=== PATIENT | female | born 2005 | race Native Hawaiian/Other Pacific Islander ===

== ENCOUNTER 2025-03-17 14:53 | Inpatient (IN) | payer OTHER ==
[2025-03-17 19:11] VITALS: BP 112/69; PULSE 18; RESP 18; TEMP 98.1; O2SAT 100
[2025-03-17 20:30] VITALS: PULSE 109; O2SAT 100
[2025-03-18] VITALS (7 sets, daily range): BP systolic 103–115; BP diastolic 62–73; PULSE 84–108; RESP 17–19; TEMP 97.7–98.4; O2SAT 98–100
[2025-03-18] MEDS ORDERED: ONDANSETRON HCL 4 MG/2 ML VIAL IVP PRN (02:15)
[2025-03-18] MEDS ORDERED: MORPHINE SULFATE 2 MG/ML SYRINGE IVP PRN (02:15)
[2025-03-18] MEDS ORDERED: ZOLPIDEM TARTRATE 5 MG TABLET PO PRN (02:15)
[2025-03-18 07:59] LABS: CALCIUM, TOTAL 9.5 mg/dL (8.8-10.5); CREATININE 0.45 mg/dL (0.60-1.30); GLOMERULAR FILTR. RATE CALC > 60 mL/min (>60); GLUCOSE,RANDOM 90 mg/dL (70-110); SODIUM SERUM 136 mmol/L (136-145); UREA NITROGEN, BLOOD 11 mg/dL (7-18)
[2025-03-18 08:03] LABS: RED BLOOD CELL COUNT(AUTO) 4.53 MIL/uL (4.00-5.20); RED CELL DISTRIBUTION WIDTH 25.2 % (11.5-14.5); WHITE BLOOD COUNT (AUTO) 7.0 K/uL (4.5-11.0)
[2025-03-18 08:06] LABS: PLATELET COUNT (AUTO) 900 K/uL (150-450)
[2025-03-18] MEDS ORDERED: MORPHINE SULFATE 4 MG/ML SYRINGE IVP PRN (10:02)
[2025-03-18] MEDS: PANTOPRAZOLE SODIUM 40 MG DR TABLET PO SCH (10:33)
[2025-03-18] MEDS: DOCUSATE SODIUM 100 MG CAPSULE PO SCH (10:33)
[2025-03-18] MEDS: HEPARIN SODIUM,PORCINE 5,000 UNITS/ML VIAL SQ SCH (10:33)
[2025-03-18 12:59] LABS: RBC MORPHOLOGY COMMENT ABNORMAL RBC MORPH
[2025-03-18 13:03] LABS: PLATELET MORPHOLOGY COMMENT LARGE PLTS PRESENT
[2025-03-18] MEDS: HYDROCODONE/ACETAMINOPHEN 5-325 MG TABLET PO PRN (13:24)
[2025-03-18 19:29] LABS: APPEARANCE,URINE CLEAR (CLEAR); GLUCOSE, URINE (UA) NEGATIVE (NEGATIVE); LEUKOCYTE ESTERASE ,URINE NEGATIVE (NEGATIVE); NITRATE,URINE NEGATIVE (NEGATIVE); OCCULT BLOOD,URINE NEGATIVE (NEGATIVE); SPECIFIC GRAVITIY, URINE 1.011 (1.003-1.030)
[2025-03-18] MEDS: OMEGA-3/DHA/EPA/FISH OIL 1,000 MG CAPSULE PO SCH (21:56)
[2025-03-19 05:04] VITALS: BP 115/70; PULSE 105; RESP 18; TEMP 98.1; O2SAT 98
[2025-03-19 08:39] VITALS: BP 105/67; PULSE 94; RESP 17; TEMP 98.2; O2SAT 99
[2025-03-19 14:25] VITALS: BP 98/71; PULSE 132; RESP 18; TEMP 98.1; O2SAT 98
[2025-03-19] MEDS: OxyCODONE HCL 5 MG IR TABLET PO PRN (14:32)
[2025-03-19 16:00] VITALS: BP 110/71; PULSE 110; RESP 18; TEMP 98.1; O2SAT 99
[2025-03-19 19:30] VITALS: BP 112/69; PULSE 114; RESP 18; TEMP 98.6; O2SAT 95
[2025-03-20 05:30] VITALS: BP 111/68; PULSE 92; RESP 18; TEMP 98.2; O2SAT 98
[2025-03-20 07:44] VITALS: BP 120/68; PULSE 85; RESP 18; TEMP 98.4; O2SAT 100
[2025-03-20 16:08] VITALS: BP 112/74; PULSE 105; RESP 18; TEMP 98.8; O2SAT 99
[2025-03-20 20:00] VITALS: BP 111/66; PULSE 93; RESP 18; TEMP 98.6; O2SAT 99
[2025-03-21 05:29] VITALS: BP 111/73; PULSE 94; RESP 18; TEMP 98.2; O2SAT 99
[2025-03-21 08:01] LABS: RED BLOOD CELL COUNT(AUTO) 4.33 MIL/uL (4.00-5.20); RED CELL DISTRIBUTION WIDTH 24.9 % (11.5-14.5); WHITE BLOOD COUNT (AUTO) 7.8 K/uL (4.5-11.0)
[2025-03-21 08:04] LABS: PLATELET COUNT (AUTO) 827 K/uL (150-450)
[2025-03-21 08:19] LABS: CALCIUM, TOTAL 9.8 mg/dL (8.8-10.5); CREATININE 0.41 mg/dL (0.60-1.30); GLOMERULAR FILTR. RATE CALC > 60 mL/min (>60); GLUCOSE,RANDOM 97 mg/dL (70-110); SODIUM SERUM 137 mmol/L (136-145); UREA NITROGEN, BLOOD 8 mg/dL (7-18)
[2025-03-21 08:50] VITALS: BP 109/67; PULSE 94; RESP 18; TEMP 98.4; O2SAT 98
[2025-03-21 15:00] VITALS: BP 110/68; PULSE 109; RESP 18; TEMP 98.2; O2SAT 99
[2025-03-21 19:53] VITALS: BP 108/70; PULSE 104; RESP 18; TEMP 98.1; O2SAT 98
[2025-03-22 05:11] VITALS: BP 103/71; PULSE 89; RESP 18; TEMP 97.9; O2SAT 97
[2025-03-22 07:24] LABS: CALCIUM, TOTAL 9.9 mg/dL (8.8-10.5); CREATININE 0.41 mg/dL (0.60-1.30); GLOMERULAR FILTR. RATE CALC > 60 mL/min (>60); GLUCOSE,RANDOM 94 mg/dL (70-110); RED BLOOD CELL COUNT(AUTO) 4.61 MIL/uL (4.00-5.20); RED CELL DISTRIBUTION WIDTH 24.7 % (11.5-14.5); SODIUM SERUM 137 mmol/L (136-145); UREA NITROGEN, BLOOD 11 mg/dL (7-18); WHITE BLOOD COUNT (AUTO) 7.2 K/uL (4.5-11.0)
[2025-03-22 07:32] LABS: PLATELET COUNT (AUTO) 770 K/uL (150-450); RBC MORPHOLOGY COMMENT ABNORMAL RBC MORPH
[2025-03-22 08:12] VITALS: BP 108/74; PULSE 92; RESP 18; TEMP 97.9; O2SAT 98
[2025-03-22 16:30] VITALS: BP 109/72; PULSE 101; RESP 18; TEMP 97.9; O2SAT 98
[2025-03-22 19:21] VITALS: BP 111/71; PULSE 97; RESP 18; TEMP 97.5; O2SAT 97
[2025-03-23 04:34] VITALS: BP 109/63; PULSE 92; RESP 18; TEMP 97.9; O2SAT 97
[2025-03-23 08:14] VITALS: BP 107/65; PULSE 93; RESP 18; TEMP 97.9; O2SAT 98
[2025-03-23 09:06] LABS: PLATELET COUNT (AUTO) 712 K/uL (150-450); RED BLOOD CELL COUNT(AUTO) 4.49 MIL/uL (4.00-5.20); RED CELL DISTRIBUTION WIDTH 23.8 % (11.5-14.5); WHITE BLOOD COUNT (AUTO) 8.0 K/uL (4.5-11.0)
[2025-03-23 09:17] LABS: CALCIUM, TOTAL 9.8 mg/dL (8.8-10.5); CREATININE 0.42 mg/dL (0.60-1.30); GLOMERULAR FILTR. RATE CALC > 60 mL/min (>60); GLUCOSE,RANDOM 131 mg/dL (70-110); SODIUM SERUM 135 mmol/L (136-145); UREA NITROGEN, BLOOD 11 mg/dL (7-18)
[2025-03-23 09:49] LABS: RBC MORPHOLOGY COMMENT ABNORMAL RBC MORPH
[2025-03-23 16:26] VITALS: BP 108/73; PULSE 101; RESP 18; TEMP 98; O2SAT 97
[2025-03-23 20:14] VITALS: BP 112/73; PULSE 105; RESP 18; TEMP 98; O2SAT 99
[2025-03-24 05:00] VITALS: BP 104/65; PULSE 103; RESP 18; TEMP 98.1; O2SAT 100
[2025-03-24 08:41] VITALS: BP 103/70; PULSE 93; RESP 17; TEMP 98.6; O2SAT 100
[2025-03-24 16:02] VITALS: BP 118/76; PULSE 135; RESP 16; TEMP 97.7; O2SAT 98
[2025-03-24 18:24] VITALS: PULSE 110
[2025-03-24 19:51] VITALS: BP 111/74; PULSE 104; RESP 18; TEMP 98.5; O2SAT 100
[2025-03-25 04:59] VITALS: BP 108/71; PULSE 88; RESP 18; TEMP 97.5; O2SAT 99
[2025-03-25 09:02] VITALS: BP 112/78; PULSE 93; RESP 18; TEMP 97.3; O2SAT 99
[2025-03-25 10:03] LABS: PLATELET COUNT (AUTO) 580 K/uL (150-450); RED BLOOD CELL COUNT(AUTO) 4.66 MIL/uL (4.00-5.20); RED CELL DISTRIBUTION WIDTH 24.0 % (11.5-14.5); WHITE BLOOD COUNT (AUTO) 6.7 K/uL (4.5-11.0)
[2025-03-25 10:10] LABS: CALCIUM, TOTAL 9.5 mg/dL (8.8-10.5); CREATININE 0.44 mg/dL (0.60-1.30); GLOMERULAR FILTR. RATE CALC > 60 mL/min (>60); GLUCOSE,RANDOM 91 mg/dL (70-110); SODIUM SERUM 134 mmol/L (136-145); UREA NITROGEN, BLOOD 11 mg/dL (7-18)
[2025-03-25 10:15] LABS: ASPARTATE AMINOTRANSFERASE 19 U/L (15-37); TOTAL PROTEIN, SERUM 7.9 g/dL (6.4-8.2)
[2025-03-25 10:41] LABS: RBC MORPHOLOGY COMMENT ABNORMAL RBC MORPH
[2025-03-25 16:43] VITALS: BP 109/64; PULSE 114; RESP 18; TEMP 98.6; O2SAT 99
[2025-03-25 20:00] VITALS: BP 125/71; PULSE 97; RESP 18; TEMP 97.5; O2SAT 98
[2025-03-26] MEDS ORDERED: IOHEXOL 350 MG/ML 100 ML VIAL ONE (00:16)
[2025-03-26] MEDS ORDERED: SODIUM CHLORIDE 0.9% 100 ML ONE (00:16)
[2025-03-26 04:00] VITALS: BP 107/67; PULSE 89; RESP 18; TEMP 97.7; O2SAT 98
[2025-03-26 08:22] VITALS: BP 101/68; PULSE 91; RESP 18; TEMP 97.6; O2SAT 100
[2025-03-26] MEDS: ONDANSETRON 4 MG TABLET PO PRN (12:11)
[2025-03-26] MEDS ORDERED: ONDANSETRON HCL 4 MG/2 ML VIAL PO PRN (14:15)
[2025-03-26 17:11] VITALS: BP 107/71; PULSE 99; RESP 18; TEMP 97.9; O2SAT 100
[2025-03-26 19:15] VITALS: BP 109/68; PULSE 113; RESP 18; TEMP 97.3; O2SAT 98
[2025-03-27 04:25] VITALS: BP 107/66; PULSE 89; RESP 18; TEMP 98.1; O2SAT 98
[2025-03-27 08:00] VITALS: BP 104/70; PULSE 95; RESP 19; TEMP 98.6; O2SAT 98
[2025-03-27 16:00] VITALS: BP 108/78; PULSE 86; RESP 20; TEMP 98.1; O2SAT 98
[2025-03-27 19:41] VITALS: BP 101/64; PULSE 116; RESP 18; TEMP 98.2; O2SAT 99
[2025-03-27 21:48] LABS: PLATELET COUNT (AUTO) 438 K/uL (150-450); RED BLOOD CELL COUNT(AUTO) 4.50 MIL/uL (4.00-5.20); RED CELL DISTRIBUTION WIDTH 23.6 % (11.5-14.5); WHITE BLOOD COUNT (AUTO) 8.8 K/uL (4.5-11.0)
[2025-03-27 21:49] LABS: CALCIUM, TOTAL 9.4 mg/dL (8.8-10.5); CREATININE 0.50 mg/dL (0.60-1.30); GLOMERULAR FILTR. RATE CALC > 60 mL/min (>60); GLUCOSE,RANDOM 107 mg/dL (70-110); SODIUM SERUM 137 mmol/L (136-145); UREA NITROGEN, BLOOD 19 mg/dL (7-18)
[2025-03-27 22:00] LABS: PLATELET MORPHOLOGY COMMENT LARGE PLTS PRESENT; RBC MORPHOLOGY COMMENT ABNORMAL RBC MORPH
[2025-03-28 05:19] VITALS: BP 103/71; PULSE 99; RESP 17; TEMP 98.2; O2SAT 98
[2025-03-28 08:11] VITALS: BP 109/65; PULSE 90; RESP 18; TEMP 98.1; O2SAT 98
[2025-03-28 16:00] VITALS: BP 111/73; PULSE 109; RESP 20; TEMP 98.2; O2SAT 99
[2025-03-28 20:15] VITALS: BP 107/72; PULSE 106; RESP 20; TEMP 98.1; O2SAT 98
[2025-03-29 05:19] VITALS: BP 105/62; PULSE 96; RESP 18; TEMP 98.1; O2SAT 98
[2025-03-29 08:05] VITALS: BP 112/82; PULSE 103; RESP 20; TEMP 98.2; O2SAT 99
[2025-03-29 09:39] VITALS: BP 110/80; PULSE 104; RESP 17; TEMP 98; O2SAT 98
[2025-03-29 16:21] VITALS: BP 105/71; PULSE 116; RESP 20; TEMP 97.7; O2SAT 99
[2025-03-29 20:33] VITALS: BP 113/70; PULSE 108; RESP 18; TEMP 98.2; O2SAT 99
[2025-03-29 20:49] VITALS: BP 113/70; PULSE 106; RESP 18; TEMP 98.2; O2SAT 99
[2025-03-30 06:09] VITALS: BP 109/68; PULSE 98; RESP 18; TEMP 97.7; O2SAT 96
[2025-03-30 08:15] VITALS: BP 108/65; PULSE 97; RESP 18; TEMP 98.2; O2SAT 98
[2025-03-30 10:11] LABS: CALCIUM, TOTAL 9.6 mg/dL (8.8-10.5); CREATININE 0.42 mg/dL (0.60-1.30); GLOMERULAR FILTR. RATE CALC > 60 mL/min (>60); GLUCOSE,RANDOM 95 mg/dL (70-110); SODIUM SERUM 135 mmol/L (136-145); UREA NITROGEN, BLOOD 13 mg/dL (7-18)
[2025-03-30 10:20] LABS: TROPONIN I-HIGH SENSITIVITY 7 ng/L (<51)
[2025-03-30 12:36] VITALS: BP 113/71; PULSE 127; RESP 17; O2SAT 100
[2025-03-30 14:20] VITALS: BP_SYST 107; BP_SYST 98; BP_DIAS 77; BP_DIAS 81; PULSE 94
[2025-03-30 20:02] VITALS: BP 105/67; PULSE 110; RESP 18; TEMP 98.7; O2SAT 100
[2025-03-31 04:48] VITALS: BP 108/74; PULSE 92; RESP 18; TEMP 98; O2SAT 99
[2025-03-31 08:36] VITALS: BP 108/71; PULSE 93; RESP 18; TEMP 97.7; O2SAT 99
[2025-03-31 12:00] VITALS: BP_SYST 105; BP_SYST 98; BP_DIAS 66; BP_DIAS 70; PULSE 113
[2025-03-31 20:32] VITALS: BP 103/69; PULSE 116; RESP 18; TEMP 98.2; O2SAT 100
[2025-03-31] MEDS: MAGNESIUM HYDROXIDE SUSPENSION 30 ML UDCUP PO PRN (21:08)
[2025-04-01 03:37] VITALS: BP 106/64; PULSE 102; RESP 18; TEMP 98.1; O2SAT 99
[2025-04-01 08:54] VITALS: BP 111/77; PULSE 93; RESP 16; TEMP 98.2; O2SAT 99
[2025-04-01 12:00] VITALS: RESP 18
[2025-04-01] MEDS: BISACODYL 10 MG RECTAL RECTAL SUPPOSITORY PR PRN (14:42)
[2025-04-01 16:28] VITALS: BP 110/62; PULSE 112; RESP 18; TEMP 97.5; O2SAT 100
[2025-04-01 20:18] VITALS: BP 114/75; PULSE 93; RESP 18; TEMP 97.9; O2SAT 99
[2025-04-02 06:34] VITALS: BP 112/68; PULSE 106; RESP 20; TEMP 98.6; O2SAT 98
[2025-04-02 08:28] VITALS: BP 109/78; PULSE 86; RESP 20; TEMP 98.6; O2SAT 98
[2025-04-02 15:29] VITALS: BP 102/71; PULSE 100; RESP 20; TEMP 98.2; O2SAT 99
[2025-04-02 15:39] VITALS: BP_SYST 108; BP_SYST 113; BP_DIAS 66; BP_DIAS 73; PULSE 92
[2025-04-02 20:22] VITALS: BP 105/73; PULSE 109; RESP 20; TEMP 98.9; O2SAT 100
[2025-04-03 05:33] VITALS: BP 108/67; PULSE 95; RESP 20; TEMP 98.4; O2SAT 100
[2025-04-03 08:00] VITALS: BP_SYST 103; BP_SYST 110; BP_DIAS 65; BP_DIAS 77; PULSE 98
[2025-04-03 08:38] VITALS: BP 112/73; PULSE 98; RESP 18; TEMP 97.7; O2SAT 99
[2025-04-03 16:10] VITALS: BP 110/70; PULSE 114; RESP 18; TEMP 97.8; O2SAT 100
[2025-04-03 19:56] VITALS: BP 116/74; PULSE 98; RESP 19; TEMP 98.6; O2SAT 99
[2025-04-04 05:28] VITALS: BP 114/80; PULSE 92; RESP 18; TEMP 98.2; O2SAT 98
[2025-04-04 08:40] VITALS: BP 107/77; PULSE 96; RESP 18; TEMP 98.1; O2SAT 100
[2025-04-04 15:55] VITALS: BP 101/76; PULSE 114; RESP 17; TEMP 97.7; O2SAT 100
[2025-04-04 20:06] VITALS: BP 112/70; PULSE 118; RESP 18; TEMP 97.5; O2SAT 98
[2025-04-05 15:35] VITALS: BP 108/71; PULSE 103; RESP 18; TEMP 97.7; O2SAT 95
[2025-04-05 20:04] VITALS: BP 109/69; PULSE 122; RESP 18; TEMP 98.1; O2SAT 97
[2025-04-05 21:30] VITALS: PULSE 110
[2025-04-06 04:54] VITALS: BP 109/69; PULSE 86; RESP 18; TEMP 98.1; O2SAT 100
[2025-04-06 08:10] VITALS: BP 108/64; PULSE 101; RESP 18; TEMP 98; O2SAT 99
[2025-04-06 14:00] VITALS: BP_SYST 106; BP_SYST 108; BP_SYST 111; BP_DIAS 69; BP_DIAS 75; BP_DIAS 78; PULSE 111
[2025-04-06 16:00] VITALS: BP 105/73; PULSE 100; RESP 18; TEMP 98.1; O2SAT 100
[2025-04-06 20:00] VITALS: BP 112/72; PULSE 105; RESP 18; TEMP 97.5; O2SAT 97
[2025-04-07 04:00] VITALS: BP 106/63; PULSE 91; RESP 18; TEMP 97.9; O2SAT 99
[2025-04-07 07:38] VITALS: BP 111/68; PULSE 87; RESP 20; TEMP 97.9; O2SAT 98
[2025-04-07 08:10] VITALS: BP_SYST 111; BP_SYST 115; BP_DIAS 65; PULSE 78
[2025-04-07] MEDS: BISACODYL 10 MG RECTAL RECTAL SUPPOSITORY PR ONE (14:46)
[2025-04-07 15:40] VITALS: BP 104/72; PULSE 112; RESP 18; TEMP 97.9; O2SAT 98
[2025-04-07 19:46] VITALS: BP 109/70; PULSE 110; RESP 18; TEMP 97.9; O2SAT 97
[2025-04-08 05:23] VITALS: BP 113/77; PULSE 91; RESP 18; TEMP 97.9; O2SAT 97
[2025-04-08 08:30] VITALS: BP 110/76; PULSE 80; RESP 20; TEMP 98.4; O2SAT 100
[2025-04-08 16:00] VITALS: BP 110/76; PULSE 99; RESP 20; TEMP 98.1; O2SAT 98
[2025-04-08 20:00] VITALS: BP 108/62; PULSE 125; RESP 20; TEMP 97.3; O2SAT 95
[2025-04-09 04:00] VITALS: BP 110/76; PULSE 97; RESP 18; TEMP 97.7; O2SAT 100
[2025-04-09 08:00] VITALS: BP 106/71; PULSE 94; RESP 20; TEMP 97.3; O2SAT 100
[2025-04-09 16:00] VITALS: BP 105/70; PULSE 93; RESP 19; TEMP 97.5; O2SAT 97
[2025-04-09 19:13] VITALS: BP 106/69; PULSE 83; RESP 18; TEMP 98.8; O2SAT 98
[2025-04-10 04:25] VITALS: BP 113/70; PULSE 85; RESP 18; TEMP 98.1; O2SAT 96
[2025-04-10 07:59] VITALS: BP 106/69; PULSE 86; RESP 18; TEMP 97.5; O2SAT 100
[2025-04-10 13:37] VITALS: BP 112/66; PULSE 112; RESP 18; O2SAT 98
[2025-04-10 16:11] VITALS: BP 111/79; PULSE 96; RESP 18; TEMP 97.5; O2SAT 100
[2025-04-10 20:07] VITALS: BP 113/72; PULSE 115; RESP 18; TEMP 98.6; O2SAT 99
[2025-04-11 04:47] VITALS: BP 107/77; PULSE 85; RESP 18; TEMP 98.1; O2SAT 99
[2025-04-11 08:00] VITALS: BP 114/82; PULSE 100; RESP 19; TEMP 98.4; O2SAT 100
[2025-04-11] MEDS: SENNOSIDES 8.6 MG TABLET PO ONE (15:04)
[2025-04-11] MEDS: POLYETHYLENE GLYCOL 3350 17 GM PACKET PO SCH (15:05)
[2025-04-11 16:00] VITALS: BP 124/78; PULSE 100; RESP 20; TEMP 98.1; O2SAT 98
[2025-04-11 21:41] VITALS: BP 103/64; PULSE 109; RESP 20; TEMP 98.4; O2SAT 99
[2025-04-12 03:08] VITALS: BP 123/68; PULSE 89; RESP 18; TEMP 98; O2SAT 98
[2025-04-12 06:24] VITALS: BP 105/68; PULSE 85; RESP 20; TEMP 97.9; O2SAT 98
[2025-04-12 08:18] VITALS: BP 112/62; PULSE 98; RESP 18; TEMP 98.1; O2SAT 99
[2025-04-12 09:51] VITALS: BP 118/76
[2025-04-12 16:50] VITALS: BP 99/62; PULSE 112; RESP 18; TEMP 98; O2SAT 98
[2025-04-12 19:14] VITALS: BP 101/71; PULSE 92; RESP 18; TEMP 98.2; O2SAT 98
[2025-04-13 04:10] VITALS: BP 113/66; PULSE 99; RESP 18; TEMP 97.9; O2SAT 100
[2025-04-13 08:06] VITALS: BP 105/76; PULSE 97; RESP 18; TEMP 97.9; O2SAT 100
[2025-04-13] MEDS: SENNOSIDES 8.8 MG/5 ML SYRUP UDCUP PO ONE (15:52)
[2025-04-13 16:57] VITALS: BP 104/72; PULSE 99; RESP 18; TEMP 98; O2SAT 100
[2025-04-13 20:00] VITALS: BP 110/70; PULSE 125; RESP 18; TEMP 97.5; O2SAT 100
[2025-04-13] MEDS: DOCUSATE SODIUM 100 MG CAPSULE PO SCH (20:36)
[2025-04-14 04:00] VITALS: BP 104/69; PULSE 102; RESP 18; TEMP 98; O2SAT 99
[2025-04-14 08:36] VITALS: BP 112/75; PULSE 90; RESP 18; TEMP 98.2; O2SAT 100
[2025-04-14] MEDS ORDERED: BISACODYL 5 MG EC TABLET PO PRN (11:15)
[2025-04-14] MEDS: ACETAMINOPHEN 325 MG TABLET PO PRN (11:18)
[2025-04-14] MEDS: HYDROCODONE/ACETAMINOPHEN 5-325 MG TABLET PO PRN (14:40)
[2025-04-14 15:37] VITALS: BP 114/73; PULSE 125; RESP 18; TEMP 98.2; O2SAT 98
[2025-04-14 20:45] VITALS: BP 123/83; PULSE 118; RESP 18; TEMP 98.1; O2SAT 99
[2025-04-15 04:54] VITALS: BP 110/71; PULSE 96; RESP 18; TEMP 98.4; O2SAT 99
[2025-04-15 09:23] VITALS: BP 149/90; PULSE 75; RESP 19; TEMP 97.9; O2SAT 98
[2025-04-15 16:00] VITALS: BP 109/67; PULSE 100; RESP 19; TEMP 98.2; O2SAT 100
[2025-04-15 20:57] VITALS: BP 107/76; PULSE 100; PULSE 120; RESP 18; TEMP 98.1; O2SAT 100
[2025-04-16 05:30] VITALS: BP 108/70; PULSE 94; RESP 18; TEMP 98.1; O2SAT 96
[2025-04-16 08:00] VITALS: BP 114/76; PULSE 99; RESP 18; TEMP 98.4; O2SAT 100
[2025-04-16 16:00] VITALS: BP 116/75; PULSE 108; RESP 18; TEMP 98.2; O2SAT 99
[2025-04-16 20:25] VITALS: BP 105/72; PULSE 107; RESP 18; TEMP 98.6; O2SAT 94
[2025-04-17 04:37] VITALS: BP 113/70; PULSE 78; RESP 18; TEMP 98.6; O2SAT 98
[2025-04-17 09:00] VITALS: BP 106/71; PULSE 98; RESP 18; TEMP 98.1; O2SAT 99
[2025-04-17 15:35] VITALS: BP 120/84; PULSE 117; RESP 18; TEMP 97.7; O2SAT 100
[2025-04-17 20:00] VITALS: BP 113/71; PULSE 131; RESP 20; TEMP 97.9; O2SAT 100
[2025-04-18 04:00] VITALS: BP 102/71; PULSE 86; RESP 18; TEMP 98.1; O2SAT 99
[2025-04-18 08:00] VITALS: BP 100/70; PULSE 86; RESP 19; TEMP 98.4; O2SAT 98
[2025-04-18 16:00] VITALS: BP 101/63; PULSE 96; RESP 20; TEMP 98.6; O2SAT 100
[2025-04-18 20:31] VITALS: BP 107/70; PULSE 113; RESP 18; TEMP 98.8; O2SAT 99
[2025-04-19 04:05] VITALS: BP 103/69; PULSE 98; RESP 18; TEMP 98.2; O2SAT 98
[2025-04-19 08:00] VITALS: BP 109/73; PULSE 89; RESP 16; TEMP 98.6; O2SAT 99
[2025-04-19] MEDS ORDERED: FLUO-418 PO (15:10)
[2025-04-19] MEDS ORDERED: DOCU-385 PO (15:10)
[2025-04-19] MEDS ORDERED: HEPA50009 SQ (15:11)
[2025-04-19] MEDS ORDERED: OMEG100033 PO (15:14)
[2025-04-19] MEDS ORDERED: TRAZ-252 PO (15:14)
[2025-04-19] MEDS ORDERED: PANT-31 PO (15:14)
[2025-04-19] MEDS ORDERED: ACET-2247 PO (15:15)
[2025-04-19] MEDS ORDERED: HYDR-4062 PO (15:16)
[2025-04-19] MEDS ORDERED: ONDA-104 PO (15:17)
[2025-04-19] MEDS ORDERED: MAGN-169 PO (15:17)
[2025-04-19] MEDS ORDERED: ZOLP-280 PO (15:18)
[2025-04-19] MEDS ORDERED: BISA10SU11 PR (15:18)
[2025-04-19] MEDS ORDERED: POLY17PO47 PO (15:19)
[2025-04-19] MEDS ORDERED: BISA-151 PO (15:19)
== END 2025-04-19 17:35 | DRG 205 ==
LOC: 6S 18:43 → 4E 03-18 09:15
PROVIDERS: ADMIT Internal Medicine; ATTEND Internal Medicine
DX: J98.11 Atelectasis (principal); G82.50 Quadriplegia, unspecified; J90 Pleural effusion, not elsewhere classified; F33.2 Major depressive disorder, recurrent severe without psychotic features; F41.9 Anxiety disorder, unspecified; K59.00 Constipation, unspecified; Z75.1 Person awaiting admission to adequate facility elsewhere; Z82.49 Family history of ischemic heart disease and other diseases of the circulatory system; Z81.8 Family history of other mental and behavioral disorders
CPT/HCPCS: 71111; 71275; 72100; 72220; 80048; 80053; 81003; 83880; 84443; 84484; 85025; 85379; 87081; 93005; 93306; 93970; 97110; 97112; 97163; 97167; 97530; 97535; G0378; J1644; J2405; J7050; Q0162